=== PATIENT | male | born 1975 | race Caucasian/White ===

== ENCOUNTER 2018-10-06 10:18 | Emergency (ER) | payer BC, OTHER ==
[2018-10-06 10:36] VITALS: TEMP 99.3
--- NOTE | 2018-10-06 10:43 | ED.PDOC ---
History of Present Illness - General Chief Complaint: Bite: Animal/Insect/Human Stated Complaint: Wasp sting last night Time Seen by Provider: 10/06/18 10:40 Source: patient Exam Limitations: no limitations - History of Present Illness Initial Comments: Teja Meredith 43 y/o male came to er with left upper extremity swelling after he was stung by a [place]p at his backyard about 5 pm yesterday and gradually swelled up with dull pain.no fever ,no SOB,no numbness.Has also history of gout on Colchicine. Timing/Duration: 24 hours Severity: moderate Improving Factors: nothing Worsening Factors: movement Associated Symptoms: other - see hpi Allergies/Adverse Reactions: Allergies NO KNOWN ALLERGY Allergy (Verified 10/06/18 10:36) Home Medications: Ambulatory Orders Acetaminophen W/ Codeine [Tylenol w/Codeine 300-30 mg] 1 tab PO TID PRN #10 tab 10/06/18 Amoxicillin [Amoxil] 1,000 mg PO BID #40 cap 10/06/18 Colchicine 0.6 mg PO PRN PRN 10/06/18 Methylprednisolone [Medrol Dose Minh] 4 mg PO DAILY 6 Days #21 tab 10/06/18 Review of Systems - Review of Systems Constitutional: States: see HPI EENTM: States: no symptoms reported Respiratory: States: no symptoms reported Cardiology: States: no symptoms reported Neurological: States: see HPI All other Systems: Reviewed and Negative, No Change from Baseline Past Medical History (General) - Patient Medical History Hx Stroke: No Hx of COPD: No Hx Congestive Heart Failure: No Hx Diabetes: No Hx Cancer: No Hx MRSA: No Surgical History: no surgical history - Vaccination History Hx Tetanus, Diphtheria Vaccination: Yes Hx Influenza Vaccination: No Hx Pneumococcal Vaccination: No - Social History Hx Tobacco Use: Yes Hx Alcohol Use: Yes Hx Substance Use: No Hx Substance Use Treatment: No Hx Depression: No Hx Physical Abuse: No Hx Emotional Abuse: No - Female History Patient is a Female of Child Bearing Age (10 -59 yrs old): No Patient : No Family Medical History - Family History Father Family History: No Known Living Status: Still Living Hx Family;Other: MOM-muscular dystrophy Paternal Grandparents Living Status: Hx Family Cancer: Yes - Breast Physical Exam - Physical Exam General Appearance: Alert, Comfortable, No apparent distress Eye Exam: bilateral normal Ears, Nose, Throat: hearing grossly normal, normal ENT inspection, normal pharynx Neck: non-tender, full range of motion, supple, normal inspection Respiratory: lungs clear, normal breath sounds, no respiratory distress Cardiovascular/Chest: normal peripheral pulses, regular rate, rhythm, no murmur Peripheral Pulses: radial,right: 2+, radial,left: 2+ Gastrointestinal/Abdominal: normal bowel sounds, non tender, soft, no organomegaly Back Exam: no CVA tenderness, no vertebral tenderness Extremity: no pedal edema, no calf tenderness, normal capillary refill, other - swelling left upper extremity from wrist area to distal arm no stingers felt Neurologic: alert, oriented x 3 Skin Exam: normal color, warm/dry Progress - Progress Progress: 10/06/18 10:46 Vital Signs - 8 hr 10/06/18 10/06/18 10:20 10:29 Temperature 99.3 F Pulse Rate [R 92 H 92 H finger] Respiratory 20 20 Rate Blood Pressure 171/118 [R arm] O2 Sat by Pulse 98 Oximetry Departure - Departure Clinical Impression: Swelling of left upper extremity Wasp sting Qualifiers: Encounter type: initial encounter Injury intent: accidental or unintentional Qualified Code(s): T63.461A - Toxic effect of venom of wasps, accidental (unintentional), initial encounter Time of Disposition: 10:49 Disposition: Discharge to Home or Self Care Departure Forms: ED Discharge - Pt. Copy, Patient Portal Self Enrollment Instructions: Insect Bites and Stings (DC) Referrals: Chastity Brown NP [Primary Care Provider] - 1-2 Weeks Prescriptions: Acetaminophen W/ Codeine [Tylenol w/Codeine 300-30 mg] 1 tab PO TID PRN #10 tab PRN Reason: Pain Amoxicillin [Amoxil] 1,000 mg PO BID #40 cap Methylprednisolone [Medrol Dose Minh] 4 mg PO DAILY 6 Days #21 tab Home Medications: Ambulatory Orders Acetaminophen W/ Codeine [Tylenol w/Codeine 300-30 mg] 1 tab PO TID PRN #10 tab 10/06/18 Amoxicillin [Amoxil] 1,000 mg PO BID #40 cap 10/06/18 Colchicine 0.6 mg PO PRN PRN 10/06/18 Methylprednisolone [Medrol Dose Minh] 4 mg PO DAILY 6 Days #21 tab 10/06/18 Additional Instructions: Returnn to ER as needed;follow up with primary Md 08 October 2018 for recheck
[2018-10-06] MEDS ORDERED: diphenhydrAMINE HCL 50 MG/ML VIAL IM ONE (10:46)
[2018-10-06] MEDS ORDERED: DEXAMETHASONE INJ 4 MG/ML VIAL IM ONE (10:46)
[2018-10-06] MEDS ORDERED: KETOROLAC TROMETHAMINE INJ 30 MG/ML VIAL IM ONE (10:46)
[2018-10-06] MEDS ORDERED: cloNIDine HCL 0.1 MG TAB PO ONE (11:43)
[2018-10-06 12:26] VITALS: BP 148/112; O2SAT 96
== END 2018-10-06 12:28 | disposition home or self-care (01) ==
LOC: ER 10:18
DX: T63.461A Toxic effect of venom of wasps, accidental (unintentional), initial encounter (principal); M79.89 Other specified soft tissue disorders; M10.9 Gout, unspecified; Z79.899 Other long term (current) drug therapy; Z87.891 Personal history of nicotine dependence; Y92.007 Garden or yard of unspecified non-institutional (private) residence as the place of occurrence of the external cause
CPT/HCPCS: J1100; J1200; J1885

== ENCOUNTER 2018-10-14 08:01 | Emergency (ER) | payer BC, OTHER ==
[2018-10-14] MEDS ORDERED: COLCHICINE 0.6 MG TAB PO ONE ×2 (08:25→09:35)
--- NOTE | 2018-10-14 08:26 | ED.PDOC ---
History of Present Illness - General Chief Complaint: General Time Seen by Provider: 10/14/18 08:08 Source: patient Exam Limitations: no limitations - History of Present Illness Initial Comments: Patient presents with an acute on chronic gout attack. It is located in his left wrist and left foot. Throbbing in nature. worse with movement of the wrist and foot, better with rest. Pain is constant. Multiple previous episodes that were treated successfully with colchicine. He had a steroid injection las week but said that it did not help. He requests treatment in the E.D. No other complaints. Timing/Duration: other - 3 days Severity: moderate Improving Factors: rest Worsening Factors: movement Associated Symptoms: denies symptoms Allergies/Adverse Reactions: Allergies NO KNOWN ALLERGY Allergy (Verified 10/06/18 10:36) Home Medications: Ambulatory Orders Acetaminophen W/ Codeine [Tylenol w/Codeine 300-30 mg] 1 tab PO TID PRN #10 tab 10/06/18 Amoxicillin [Amoxil] 1,000 mg PO BID #40 cap 10/06/18 Colchicine 0.6 mg PO PRN PRN 10/06/18 Methylprednisolone [Medrol Dose Minh] 4 mg PO DAILY 6 Days #21 tab 10/06/18 Review of Systems - Review of Systems Constitutional: States: no symptoms reported EENTM: States: no symptoms reported Respiratory: States: no symptoms reported Cardiology: States: no symptoms reported, chest pain Gastrointestinal/Abdominal: States: no symptoms reported Genitourinary: States: no symptoms reported Musculoskeletal: States: see HPI Skin: States: no symptoms reported Neurological: States: no symptoms reported Endocrine: States: no symptoms reported Hematologic/Lymphatic: States: no symptoms reported Past Medical History (General) - Patient Medical History Hx Stroke: No Hx of COPD: No Hx Congestive Heart Failure: No Hx Diabetes: No Hx Cancer: No Hx MRSA: No - Vaccination History Hx Tetanus, Diphtheria Vaccination: Yes Hx Influenza Vaccination: No Hx Pneumococcal Vaccination: No - Social History Hx Tobacco Use: Yes Hx Alcohol Use: Yes Hx Substance Use: No Hx Substance Use Treatment: No Hx Depression: No Hx Physical Abuse: No Hx Emotional Abuse: No - Female History Patient : No Family Medical History - Family History Father Family History: No Known Living Status: Still Living Hx Family;Other: MOM-muscular dystrophy Paternal Grandparents Living Status: Hx Family Cancer: Yes - Breast Physical Exam - Physical Exam General Appearance: Alert Respiratory: lungs clear, normal breath sounds Cardiovascular/Chest: normal peripheral pulses, regular rate, rhythm, no edema Peripheral Pulses: radial,right: 2+, radial,left: 2+, femoral,right: 2+, femoral,left: 2+, popliteal,right: 2+, popliteal,left: 2+, dorsalis pedis,right: 2+, dorsalis pedis,left: 2+, posterior tibialis,right: 2+, posterior tibialis,left: 2+ Gastrointestinal/Abdominal: normal bowel sounds, non tender, soft Extremity: other - Painful flexion and extension of the left wrist with limited motion. No edema nor redness. Painful dorsiflexion and plantar flexion of the left foot. No erythema nor edema. Neurologic: no motor/sensory deficits, normal mood/affect, oriented x 3 Progress - Progress Progress: 10/14/18 09:53 Patient was given colchicine 1.2 mg po x one and then 0.6 mg po x one one hour later. His symptoms improved and he was discharged. Departure - Departure Clinical Impression: Gout attack Disposition: Discharge to Home or Self Care Condition: Good Departure Forms: ED Discharge - Pt. Copy, Patient Portal Self Enrollment Instructions: Lifestyle Changes to Manage Gout, Gout (DC) Diet: other - as per your primary physician to help prevent gout attacks Activity: increase activity as tolerated Referrals: Chastity Brown NP [Primary Care Provider] - 1-2 Weeks Home Medications: Ambulatory Orders Acetaminophen W/ Codeine [Tylenol w/Codeine 300-30 mg] 1 tab PO TID PRN #10 tab 10/06/18 Amoxicillin [Amoxil] 1,000 mg PO BID #40 cap 10/06/18 Colchicine 0.6 mg PO PRN PRN 10/06/18 Methylprednisolone [Medrol Dose Minh] 4 mg PO DAILY 6 Days #21 tab 10/06/18 Additional Instructions: Return to the E.R. or your regular doctor for temperature above 100.3 or failure of symptoms to resolve in the next 48 hours.
[2018-10-14 08:27] VITALS: TEMP 98.8
[2018-10-14 10:07] VITALS: BP 157/94; O2SAT 97
== END 2018-10-14 10:08 | disposition home or self-care (01) ==
LOC: ER 08:01
DX: M10.9 Gout, unspecified (principal); Z87.891 Personal history of nicotine dependence